=== PATIENT | female | born 1970 | race Caucasian/White ===

== ENCOUNTER 2019-07-29 21:27 | Emergency (ER) | payer MEDICAID, SELFPAY ==
[~2019-07-29] VITALS: Ht 162.6 cm; Wt 59.1 kg
[2019-07-29 22:00] LABS: HEMATOCRIT 40.2 % (36.0-47.0); HEMOGLOBIN 14.5 g/dl (12.0-15.5); MEAN CORPUSCULAR HEMOGLOBIN 32.4 pg (27.0-33.0); MEAN CORPUSCULAR HGB CONC 36.1 g/dl (32.0-36.5); MEAN CORPUSCULAR VOLUME 89.9 fl (80.0-96.0); PLATELET COUNT, AUTOMATED 478 10^3/uL (150-450); RED BLOOD COUNT 4.47 10^6/uL (4.00-5.40); WHITE BLOOD COUNT 6.7 10^3/uL (4.0-10.0)
[2019-07-29 22:32] LABS: ACETAMINOPHEN LEVEL < 2.0 UG/ML (10.0-30.0); ALBUMIN 4.2 GM/DL (3.2-5.2); ALT/SGPT 28 U/L (12-78); BILIRUBIN,DIRECT 0.2 MG/DL (0.0-0.2); BILIRUBIN,TOTAL 0.4 MG/DL (0.2-1.0); BLOOD UREA NITROGEN 9 MG/DL (7-18); CALCIUM LEVEL 8.4 MG/DL (8.5-10.1); CARBON DIOXIDE LEVEL 27 MEQ/L (21-32); CHLORIDE LEVEL 106 MEQ/L (98-107); CREATININE FOR GFR 0.79 MG/DL (0.55-1.30); ETHYL ALCOHOL (ETHANOL) 0.347 % (0.000-0.010); GLOMERULAR FILTRATION RATE > 60.0 (>58); GLUCOSE, FASTING 80 MG/DL (70-100); POTASSIUM SERUM 4.2 MEQ/L (3.5-5.1); SALICYLATE LEVEL 1.9 MG/DL (5.0-30.0); SODIUM LEVEL 141 MEQ/L (136-145); TOTAL PROTEIN 7.7 GM/DL (6.4-8.2)
[2019-07-29] MEDS ORDERED: PROMETHAZINE 25 MG TAB PO ONE (23:15)
[2019-07-29] MEDS ORDERED: diphenhydrAMINE 50MG CAP PO ONE (23:45)
[2019-07-29] MEDS ORDERED: HALOPERIDOL 5MG/ML VIAL (J1630 PER 1) IM STA (23:57)
[2019-07-30] MEDS ORDERED: diphenhydrAMINE 50MG/ML VIAL (J1200) IM ONE
[2019-07-30 00:20] LABS: LIPASE 150 U/L (73-393)
[2019-07-30 01:30] VITALS: BP 142/94
[2019-07-30] MEDS ORDERED: cloNIDine 0.1 MG TAB PO ONE (01:30)
[2019-07-30 03:22] LABS: AMPHETAMINES LEVEL URINE NEGATIVE (NEGATIVE); BARBITURATES URINE NEGATIVE (NEGATIVE); BENZODIAZEPINES URINE NEGATIVE (NEGATIVE); CANNABINOIDS URINE NEGATIVE (NEGATIVE); COCAINE METABOLITE URINE NEGATIVE (NEGATIVE); METHADONE URINE NEGATIVE (NEGATIVE); OPIATES URINE NEGATIVE (NEGATIVE); PHENCYCLIDINE URINE NEGATIVE (NEGATIVE)
[2019-07-30] MEDS ORDERED: LORazepam 2 MG TAB PO PRN (07:15)
[2019-07-30] MEDS ORDERED: FOLIC ACID 1 MG TAB PO SCH (09:00)
[2019-07-30] MEDS ORDERED: MULTIVITAMINS/MINERALS THERAP 1 TAB PO SCH (09:00)
[2019-07-30] MEDS ORDERED: THIAMINE 100 MG TAB PO SCH (09:00)
[2019-07-30 13:10] VITALS: BP 151/71
[2019-07-30] MEDS ORDERED: OXAZEPAM 15 MG CAP PO ONE (13:30)
== END 2019-07-30 13:46 | disposition home or self-care (01) ==
LOC: M ED 21:27
DX: F33.9 Major depressive disorder, recurrent, unspecified (principal); F10.10 Alcohol abuse, uncomplicated; I10 Essential (primary) hypertension
CPT/HCPCS: 36415; 80048; 80076; 80307; 83690; 84443; 85027; 96372; 99284; G0480; J1200; J1630